=== PATIENT | female | born 1955 | race Two or more races ===

== ENCOUNTER 2024-02-15 09:30 | Outpatient (RCR) | payer MEDICARE, MEDICAID, SELFPAY ==
--- NOTE | 2024-02-13 14:48 | PT.ODAYNRPT ---
PT Outpatient Daily Note OP Daily Note Outpatient Physical Therapy Treatment Date: 02/13/24 Visit Reasons: Pain in Right shoulder Subjective: Continued pain of top of R shoulder Objective: See F/S for therex MT: STM R levator scap mm x5' Assessment: Moderate TTP of levator scap mm on R Plan: Decrease pain Length of Time (minutes) of Treatment: 30 Minutes Procedure Charges Therapeutic Exercise 30 minutes: Yes
--- NOTE | 2024-02-15 13:17 | PT.ODAYNRPT ---
PT Outpatient Daily Note OP Daily Note Outpatient Physical Therapy Treatment Date: 02/15/24 Visit Reasons: Pain in Right shoulder Subjective: Continued pain of top of R shoulder Objective: See F/S for therex MT: STM R levator scap mm x5' Assessment: Moderate TTP of levator scap mm on R Plan: Decrease pain. Pt will call after her trip to schedule Length of Time (minutes) of Treatment: 30 Minutes Procedure Charges Therapeutic Exercise 30 minutes: Yes
== END 2024-02-25 23:59 | disposition home or self-care (01) ==
LOC: CPTX 09:30
PROVIDERS: PCP Physician Assistant Medical; Referring Provider Physician Assistant Medical; Visit Provider Physician Assistant Medical
DX: M25.511 Pain in right shoulder (principal)
CPT/HCPCS: 97110

== ENCOUNTER 2024-03-15 11:00 | Outpatient (RCR) | payer OTHER, MEDICAID, SELFPAY ==
--- NOTE | 2024-03-07 09:54 | PT.ODAYNRPT ---
PT Outpatient Daily Note OP Daily Note Outpatient Physical Therapy Treatment Date: 03/07/24 Visit Reasons: Pain in RT shoulder Subjective: pt. reports 5/10 pain and concerns of popping in R shoulder when reaching overhead. Objective: see flowsheet for ther-ex AROM R shoulder ER:90 degrees Assessment: ther-ex increased AROM R shoulder from her first evaluation to today +25 degrees with less pain Plan: continue PT per POC Length of Time (minutes) of Treatment: 30 Minutes Procedure Charges Therapeutic Exercise 30 minutes: Yes
--- NOTE | 2024-03-13 19:29 | PT.ODAYNRPT ---
PT Outpatient Daily Note OP Daily Note Outpatient Physical Therapy Treatment Date: 03/13/24 Visit Reasons: Pain in RT shoulder Subjective: pt. reports 5/10 pain and concerns of popping in R shoulder when reaching overhead. Objective: see flowsheet for ther-ex AROM R shoulder ER:90 degrees Assessment: ther-ex increased AROM R shoulder from her first evaluation to today +25 degrees with less pain Plan: continue PT per POC Length of Time (minutes) of Treatment: 30 Minutes Procedure Charges Therapeutic Exercise 30 minutes: Yes
--- NOTE | 2024-03-15 16:57 | PT.ODS1RPT ---
PT OP Progress/Discharge Note Date of Service: 03/15/24 Progress Note/DC Note Progress Note/Discharge Note: Progress Note Patient Information Visit Reasons: Pain in RT shoulder Service Continue Service or Discharge: Continue Service Status Subjective: Pt. reports 5/10 pain and concerns of popping in R shoulder when reaching overhead. Objective: see flowsheet for ther-ex AROM R shoulder ER: 90 degrees FF: 120 deg Strength: 4-/5 in FF and abduction Assessment: Pt has attended 02/12 authorized visits with good progress with goals. Pt has increased AROM R shoulder from her first evaluation to today +25 degrees with less pain. She would benefit from continued therapy to improve strength. Plan: Extend POC cert dates from 03/12/24 to 05/12/24 in order to complete visits and POC to 18 visits. Procedure Charges Therapeutic Exercise 30 minutes: Yes
== END 2024-03-27 23:59 | disposition home or self-care (01) ==
LOC: CPTX 11:00
PROVIDERS: PCP Physician Assistant Medical; Referring Provider Physician Assistant Medical; Visit Provider Physician Assistant Medical
DX: M25.511 Pain in right shoulder (principal)
CPT/HCPCS: 97110

== ENCOUNTER → 2024-08-02 | Outpatient (CLI) | payer MEDICARE, MEDICAID, SELFPAY ==
--- NOTE | 2024-08-02 10:30 | XR_ITS ---
Examination: Screening digital mammography, bilateral Computer aided detection 3-D breast Tomosynthesis, bilateral Date and time of exam: August 02, 2024 1018 hours Compared to mammograms dating to April 27, 2016 Indication: Screening Technique: Nonmagnified MLO, CC views of the breasts to been obtained, reconstructed from 3-D Tomosynthesis images. R2 computer aided detection program utilized for evaluation of suspicious masses and/or abnormal calcifications. 3-D Tomosynthesis images obtained. Findings: The breasts are heterogeneously dense, which may obscure small masses 8 mm focal asymmetry outer right breast 6.9 cm from the nipple 10 mm focal asymmetry nipple level left breast CC view 5.7 cm from the nipple Impression: BI-RADS Category 0: Incomplete: Need additional imaging evaluation Recommend follow-up spot tomographic views upper outer quadrant right breast and 12:00 position left breast to assess focal asymmetries described above as well as bilateral breast sonography to complete the workup
== END | disposition home or self-care (01) ==
PROVIDERS: Referring Provider Physician Assistant Medical; Visit Provider Physician Assistant Medical
DX: Z12.31 Encounter for screening mammogram for malignant neoplasm of breast (principal); N64.89 Other specified disorders of breast
CPT/HCPCS: 77063; 77067

== ENCOUNTER → 2024-08-24 | Outpatient (CLI) | payer MEDICARE, MEDICAID, SELFPAY ==
--- NOTE | 2024-08-24 15:30 | XR_ITS ---
Examination: Carotid arterial duplex scan, ultrasound. Date and time of exam: August 24, 2024 1545 hours INDICATIONS: Right mid neck pain beginning one year ago Technique: Multiple sonographic images have been obtained of the carotid arteries and vertebral arteries, B-mode/grayscale imaging and Doppler spectral analysis and color flow Peak systolic and diastolic velocities have been recorded. Systolic diastolic ratios have been calculated. Findings: Right peak systolic velocities: Distal internal carotid artery peak systolic velocity is 1.0 M/sec Proximal internal carotid artery peak systolic velocity is 0.5 M/sec Carotid bifurcation peak systolic velocity is 0.7 M/sec External carotid artery peak systolic velocity is 0.8 M/sec Vertebral artery flow is antegrade. Left peak systolic velocities: Distal internal carotid artery peak systolic velocity is 0.7 M/sec Proximal internal carotid artery peak systolic velocity is 0.7 M/sec Carotid bifurcation peak systolic velocity is 0.7 M/sec External carotid artery peak systolic velocity is 0.9 M/sec Vertebral artery flow is antegrade Doppler waveform analysis demonstrates no spectral broadening Impression: Right internal carotid artery demonstrates 0-10% stenosis. Left internal carotid artery demonstrates 0-10% stenosis.
== END | disposition home or self-care (01) ==
LOC: CDIM 15:27
PROVIDERS: PCP Family Medicine; Referring Provider Physician Assistant Medical; Visit Provider Physician Assistant Medical
DX: R42 Dizziness and giddiness (principal)
CPT/HCPCS: 93880

== ENCOUNTER → 2024-08-24 | Outpatient (CLI) | payer MEDICARE, MEDICAID, SELFPAY ==
--- NOTE | 2024-08-29 16:00 | XR_ITS ---
Examination: CT brain head without contrast. 2-D sagittal coronal reconstructions Date and time of exam:August 29, 2024 at 1608 hours INDICATIONS: Dizziness headaches beginning 2 years ago CTDI: vol (mGy):47.4 DLP: (mGycm):930 Technique: Multiple CT axial sections of the brain have been obtained, 5 mm slice thickness. Contrast has not been administered. 2-D sagittal, coronal reconstructions have been obtained Low dose protocols were performed. One or more of the following dose reduction techniques were used; automated exposure control, adjustment of the mA and/or KV according to patient size, use of iterative reconstruction technique. Findings: No significant ventricular enlargement. Intra-axial or extra-axial hemorrhage density is not seen. No mass effect or midline shift Basal cisterns are not remarkable. Fourth ventricle is midline. Cranial vault intact. Right maxillary chronic sinus disease Impression: Negative for acute hemorrhage, mass effect or midline shift
== END | disposition home or self-care (01) ==
PROVIDERS: PCP Family Medicine; Referring Provider Physician Assistant Medical; Visit Provider Physician Assistant Medical
DX: Z53.8 Procedure and treatment not carried out for other reasons (principal)

== ENCOUNTER → 2024-08-29 | Outpatient (CLI) | payer MEDICARE, MEDICAID, SELFPAY | END | disposition home or self-care (01) | PROVIDERS: PCP Physician Assistant Medical; Referring Provider Physician Assistant Medical; Visit Provider Physician Assistant Medical | DX: R42 Dizziness and giddiness (principal) | CPT/HCPCS: 70450 ==

== ENCOUNTER → 2024-11-07 | Outpatient (CLI) | payer MEDICARE, MEDICAID, SELFPAY ==
--- NOTE | 2024-11-07 08:00 | XR_ITS ---
Examination: Breast ultrasound complete, bilateral Date and time of exam: November 07, 2024 0801 hours INDICATIONS: Mammogram August 02, 2024 8mm focal asymmetry outer right breast 6.9 cm from the nipple 10 mm focal asymmetry nipple level left breast CC view Technique: Real-time grayscale ultrasonographic imaging bilateral breasts, including all 4 quadrants as well as nipple retroareolar and axillary regions. Findings: Sonographic images right breast Benign cysts, the largest in the 11:00 position 6 x 5 mm No solid nodules Sonographic images left breast Benign cyst 2:00 solid nodule circumscribed 5 x 8 mm IMPRESSION: BI-RADS Category 3: Probably benign findings One additional 6 month left breast sonogram follow-up is needed to document stability of 2:00 nodule left breast described above
--- NOTE | 2024-11-07 09:00 | XR_ITS ---
Examination: Diagnostic digital mammography, bilateral Computer aided detection 3-D breast Tomosynthesis, bilateral Date and time of exam: November 07, 2024 0823 hours INDICATIONS: Mammogram July 2024 8mm focal asymmetry outer right breast, 10 mm focal asymmetry nipple level left breast Technique: Nonmagnified MLO, CC views of the breasts to been obtained, reconstructed from 3-D Tomosynthesis images. R2 computer aided detection program utilized for evaluation of suspicious masses and/or abnormal calcifications. 3-D Tomosynthesis images obtained. Findings: The breasts are heterogeneously dense, which may obscure small masses 4 mm nodule on the spot compression CC view slightly outer right breast anterior depth Focal asymmetry does remain nipple level left breast on the CC view Impression: BI-RADS Category 3: Probably benign findings Bilateral 6 month mammography follow-up needed to document stability of right breast nodule and focal asymmetry left breast described above.
== END | disposition home or self-care (01) ==
LOC: CDIM 07:50
PROVIDERS: Referring Provider Physician Assistant Medical; Visit Provider Physician Assistant Medical
DX: R92.333 Mammographic heterogeneous density, bilateral breasts (principal); N64.89 Other specified disorders of breast; N63.21 Unspecified lump in the left breast, upper outer quadrant
CPT/HCPCS: 76641; 77062; 77066; G0279

== ENCOUNTER 2024-11-25 11:17 | Emergency (ER) | payer MEDICARE, MEDICAID, SELFPAY ==
[2024-11-25 11:42] VITALS: BP 139/79; PULSE 72; RESP 18; TEMP 37.2; O2SAT 96
--- NOTE | 2024-11-25 11:48 | PD.EDADULT ---
ED General RME/HPI General Chief complaint: Dizziness Stated complaint: DIZZY, HEAD FEELS NUMB, FRONTAL HEADACHE Time Seen by Provider: 11/25/24 11:46 Arrival date/time: 11/25/24 11:17 CC: Light sensitivity frontal headache and dizziness when looking down HPI onset 4 to 5 days ago took a gram of Tylenol with some improvement this morning. Denies nausea vomiting has a history of diabetes hypertension hypercholesterolemia. Has had intermittent dizziness episodes since the beginning of October seen her PCP for those. Patient is awake alert oriented nontoxic-appearing but in mild discomfort Related Data Home Medications ?Medication ?Instructions ?Recorded ?Confirmed hydrochlorothiazide 25 mg tablet 25 mg PO QAM #0 tabs 06/13/14 03/07/23 atorvastatin 40 mg tablet 40 mg PO DAILY 03/07/23 03/07/23 carvedilol 25 mg tablet 25 mg PO DAILY 03/07/23 03/07/23 sitagliptin phosphate 100 mg 100 mg PO DAILY 03/07/23 03/07/23 tablet (Januvia) Previous Rx's ?Medication ?Instructions ?Recorded loratadine 10 mg disintegrating 10 mg PO QDAY #14 tabs 11/25/24 tablet meloxicam 7.5 mg tablet 7.5 mg PO QDAY PRN saldaña #10 tabs 11/25/24 Allergies Allergy/AdvReac Type Severity Reaction Status Date / Time codeine Allergy Intermediate Dizziness Verified 11/25/24 11:22 Review of Systems Review of Systems Narrative Review of Systems: GEN: No fever, no chills, no weight loss EYES: No discharge, no visual changes, no pain HEENT: No ear pain, no congestion, no sore throat PULM: No shortness of breath, no cough, no congestion CV: No chest pain, no dyspnea on exertion, no palpitations GI: No nausea, no vomiting, no diarrhea, no pain, no constipation : No frequency, no urgency, no dysuria MUSC/SKEL: No joint pain, no back pain SKIN: No rash PSYCH: No hallucinations, no depression HEME/LYMPH: No easy bleeding or bruising tendencies NEURO: No weakness, + headache Past Medical History Past Medical History NEUROLOGIC: Negative Neurological Disorders or Seizures CARDIAC: Positive Cardiac Disorders, Hypercholesterolemia and Hypertension; Negative Congestive Heart Failure RESPIRATORY: Positive Asthma; Negative Chronic Obstructive Pulmonary Disease (COPD) GASTROINTESTINAL: Positive Gastrointestinal Disorders GENITOURINARY: Negative Genitourinary Disorders or Renal Disease MUSCULOSKELETAL: Positive Musculoskeletal Disorders and Osteoporosis ENDOCRINE: Positive Endocrine Disorders and Diabetes Mellitus Type 2; Negative Diabetes Mellitus Type 1 HEMATOLOGIC: Negative Blood Disorders OTHER HISTORY: Negative Blood Transfusions or Anesthesia Reactions Surgical History SURGICAL: Positive Abdominal Surgery (UNKNOWN ESOPHAGEAL SX) and Hysterectomy Social History SMOKING STATUS: Never smoker ED Exam Narrative Physical exam: [General: Obese, in mild discomfort but not in any acute distress Head normocephalic HEENT: Eyes: Pupils are PERRLA EOMs are intact, no nystagmus. Mouth pink moist membranes uvula is midline swallow symmetrical phonation is normal. All of the subsystems of HEENT are within acceptable limits Neck is supple nontender Chest equal chest rise nontender to palpation Respiratory: Clear to auscultation no wheezes crackles or rubs CV: Rate rhythm is regular no murmurs rubs or clicks Abdomen is distended secondary to body habitus soft nontender no masses positive bowel sounds all 4 quadrants Back: No CVA tenderness no spinous process tenderness from cervical spine thoracic and lumbar spine Skin: Intact no petechiae rash induration ulceration or crepitus Extremities: Moving all extremity against resistance cap refill less than 2 seconds neurosensory intact Neuro: Awake alert oriented x3 Glascow coma 15 no focal deficits] Course Course Course Narrative: Reassessment of this patient at 1341, the pain has resolved completely all dizziness and light sensitivity is resolved as well. I asked intentionally the patient to pitch herself forward as that the time when she complains of the worst dizziness and that is all resolved as well. The patient may or may not have a sinusitis that is contributing to this although she did not have pain with pressure in the sinuses will discharge the patient home with a decongestant and meloxicam. Quality Measures none Orders Category Date Time Status Glucose [Bedside Blood Glucose] NOW Care 11/25/24 11:50 Active DiphenhydrAMINE INJ [Benadryl Inj] Med 11/25/24 11:47 Discontinued 25 mg IM X1 ONE Ketorolac Inj [Toradol Inj] Med 11/25/24 11:47 Discontinued 30 mg IM X1 ONE Prochlorperazine Inj [Compazine Inj] Med 11/25/24 11:47 Discontinued 10 mg IM X1 ONE Vital Signs Vital signs: Vital Signs Temperature 98.9 F 11/25/24 11:42 Pulse Rate 72 11/25/24 11:42 Respiratory Rate 18 11/25/24 11:42 Blood Pressure 139/79 H 11/25/24 11:42 Pulse Oximetry (%) 96 11/25/24 11:42 Oxygen Delivery Method Room Air 11/25/24 11:42 Discharge Plan Plan Patient Disposition: HOME (Self Care) Patient condition on transfer: Stable Prescriptions/Referrals Prescriptions/Med Rec: New meloxicam 7.5 mg tablet 7.5 mg PO QDAY PRN (Reason: saldaña) Qty: 10 0RF loratadine 10 mg tablet,disintegrating 10 mg PO QDAY Qty: 14 0RF No Action hydrochlorothiazide 25 MG tablet 25 mg PO QAM Qty: 0 atorvastatin 40 mg tablet 40 mg PO DAILY carvedilol 25 mg tablet 25 mg PO DAILY Januvia 100 mg tablet 100 mg PO DAILY Problem List Clinical Impression: Migraine Patient/Caregiver Discharge Instructions Education Materials: ED Headache, Migraine, Classic Additional Instructions: Take the medications as prescribed for relief if there is worsening of symptoms in spite of the medications follow-up with your primary care doctor or return the emergency room for reevaluation. Print Language: [place] Stand Alone Forms: [employer] Award Info., Patient Portal Info Letter, Work/School Release PA/ADMISSIONS RN Supervising Physician PA/ADMISSIONS RN Supervising Physician: Dheeraj Serrano ENP [facility] Clinical Information Provided by patient and family Medical Records Reviewed [facility] Meds/Rx Considered, not Ordered None Labs/Rad/Tests considered, not Ordered None Chronic Illness/Social Conditions Add or document further as needed: Diabetes hypertension hyperlipidemia EKG EKG not done Lab Interpretation Labs: none Imaging Imaging interpretation: none Medication Administration(s) none Medication Administration History Discontinued Medications Diphenhydramine HCl (Diphenhydramine Inj 50 Mg/Ml Vial) 25 mg IM X1 ONE Stop: 11/25/24 11:48 Last Admin: 11/25/24 12:12 Dose: 25 mg Documented By: ALTA Ketorolac Tromethamine (Ketorolac Inj 60 Mg/2 Ml Vial) 30 mg IM X1 ONE Stop: 11/25/24 11:48 Last Admin: 11/25/24 12:13 Dose: 30 mg Documented By: ALTA Prochlorperazine Edisylate (Prochlorperazine Inj 5 Mg/Ml Vial 2 Ml) 10 mg IM X1 ONE; Protocol Stop: 11/25/24 11:48 Last Admin: 11/25/24 12:11 Dose: 10 mg Documented By: ALTA Diagnosis Differential diagnosis: Migraine, headache, tension headache
[2024-11-25] MEDS: PROCHLORPERAZINE INJ 5 MG/ML VIAL 2 ML 10 MG IM (12:11)
[2024-11-25] MEDS: KETOROLAC INJ 60 MG/2 ML VIAL 30 MG IM (12:13)
== END 2024-11-25 14:22 | disposition home or self-care (01) ==
LOC: SERX 14:25
PROVIDERS: Emergency Provider Family Medicine; PCP Family Medicine
DX: G43.909 Migraine, unspecified, not intractable, without status migrainosus (principal)
CPT/HCPCS: 80053; 85025; 85610; 85730; 96372; 99283; J0780; J1200; J1885

== ENCOUNTER 2024-11-27 18:18 | Emergency (ER) | payer MEDICARE, MEDICAID, SELFPAY ==
[2024-11-27 19:00] VITALS: BP 147/73; PULSE 54; RESP 18; TEMP 37.1; O2SAT 95
--- NOTE | 2024-11-27 19:16 | XR_ITS ---
Examination: CT brain head without contrast. 2-D sagittal coronal reconstructions Date and time of exam: March 29, 2024 1951 hrs. Indications: Headache and redness in the eyes beginning 5 days ago CTDI: vol (mGy):47.8. DLP: (mGycm):931. Technique: Multiple CT axial sections of the brain have been obtained, 5 mm slice thickness. Contrast has not been administered. 2-D sagittal, coronal reconstructions have been obtained Low dose protocols were performed. One or more of the following dose reduction techniques were used; automated exposure control, adjustment of the mA and/or KV according to patient size, use of iterative reconstruction technique. Findings: No significant ventricular enlargement. Intra-axial or extra-axial hemorrhage density is not seen. No mass effect or midline shift Basal cisterns are not remarkable. Fourth ventricle is midline. Cranial vault intact. Impression: Negative for acute hemorrhage, mass effect or midline shift Advise clinical correlation follow-up accordingly.
--- NOTE | 2024-11-27 19:18 | EDNOTE_ITS ---
ED Headache RME/HPI General Chief Complaint: Headache Stated Complaint: HEADACHE, EYES ARE RED Time Seen by Provider: 11/27/24 19:15 Arrival date/time: 11/27/24 18:18 69F with history of HTN and DM presents to ED with 5 days of ANNE and some eye pain/redness. No blurry vision, ans also denies LOC, fall/trauma, AMS, eye discharge, URI symptoms, and fevers/chills. Symptoms started with ANNE, then eye pain. Patient was here several days ago for this where she received some meds that improved symptoms, but then they came back and the eye pain developed. Limitations: no limitations Related Data Home Medications ?Medication ?Instructions ?Recorded ?Confirmed hydrochlorothiazide 25 mg tablet 25 mg PO QAM #0 tabs 06/13/14 03/07/23 atorvastatin 40 mg tablet 40 mg PO DAILY 03/07/2302/25 carvedilol 25 mg tablet 25 mg PO DAILY 03/07/2302/25 sitagliptin phosphate 100 mg 100 mg PO DAILY 03/07/23 03/07/23 tablet (Januvia) Previous Rx's ?Medication ?Instructions ?Recorded loratadine 10 mg disintegrating 10 mg PO QDAY #14 tabs 11/25/24 tablet meloxicam 7.5 mg tablet 7.5 mg PO QDAY #10 tabs 10/28 04/21 Allergies Allergy/AdvReac Type Severity Reaction Status Date / Time codeine Allergy Intermediate Dizziness Verified 11/27/24 18:21 Review of Systems Review of Systems Systems Reviewed: All systems reviewed, normal except as documented Constitutional Constitutional: Reports system reviewed and no additional complaints, except as documented, Reports as per HPI, Denies fever(s) and Reports headache(s) Eyes Eyes: Reports as per HPI, Denies blurry vision and Reports eye pain ENT Ears, Nose, Mouth, and Throat: Denies disequilibrium and Reports headache(s) Cardiovascular Cardiovascular: Reports system reviewed and no additional complaints, except as documented, Denies chest pain and Denies dyspnea Respiratory Respiratory: Reports system reviewed and no additional complaints, except as documented, Denies cough and Denies dyspnea Gastrointestinal Gastrointestinal: Reports system reviewed and no additional complaints, except as documented, Denies abdominal pain, Denies nausea and Denies vomiting Neurologic Neurologic: Reports system reviewed and no additional complaints, except as documented, Denies confusion, Denies disequilibrium and Reports headache(s) Psychiatric Psychiatric: Denies confusion Past Medical History Past Medical History NEUROLOGIC: Negative Neurological Disorders or Seizures CARDIAC: Positive Cardiac Disorders, Hypercholesterolemia and Hypertension; Negative Congestive Heart Failure RESPIRATORY: Positive Asthma; Negative Chronic Obstructive Pulmonary Disease (COPD) GASTROINTESTINAL: Positive Gastrointestinal Disorders GENITOURINARY: Negative Genitourinary Disorders or Renal Disease MUSCULOSKELETAL: Positive Musculoskeletal Disorders and Osteoporosis ENDOCRINE: Positive Endocrine Disorders and Diabetes Mellitus Type 2; Negative Diabetes Mellitus Type 1 HEMATOLOGIC: Negative Blood Disorders OTHER HISTORY: Negative Blood Transfusions or Anesthesia Reactions Surgical History SURGICAL: Positive Abdominal Surgery (UNKNOWN ESOPHAGEAL SX) and Hysterectomy Social History SMOKING STATUS: Never smoker ED Exam General Limitations: Present no limitations General appearance: Present alert and in no apparent distress Head Head exam: Present atraumatic Eye Eye exam: Present PERRL and EOMI Expanded Eye Exam Sclera/Conjunctival: left: injection and right: hemorrhage ENT ENT exam: Present normal exam, normal oropharynx and mucous membranes moist Neck Neck exam: Present normal inspection, full ROM and trachea midline Chest Chest inspection: Present normal inspection and symmetric chest wall rise Respiratory Respiratory exam: Present normal lung sounds bilaterally Cardiovascular Cardiovascular exam: Present regular rate, normal rhythm and normal heart sounds Abdominal Exam Abdominal exam: Present soft and normal bowel sounds Extremities Exam Extremities exam: Present normal inspection and full ROM Back Exam Back exam: Present normal inspection and full ROM Neurological Exam Neurological exam: Present alert, oriented X3 and CN II-XII intact Psychiatric Psychiatric exam: Present normal affect and normal mood Skin Skin exam: Present warm, dry, intact and normal color Course Quality Measures none Orders Category Date Time Status CT head/brain wo con Stat Exams 11/27/24 19:16 Completed CBC Stat Lab 11/27/24 20:02 Completed CMP [Comprehensive Metabolic Panel] Stat Lab 11/27/24 20:02 Completed CRP [C-Reactive Protein] Stat Lab 11/27/24 20:02 Completed ESR [Sed Rate (ESR)] Stat Lab 11/27/24 20:02 Completed INR [Prothrombin Time with INR] Stat Lab 11/27/24 20:02 Completed PTT [Partial Thromboplastin Time] Stat Lab 11/27/24 20:02 Completed Metoclopramide [Reglan] Med 11/27/24 19:21 Discontinued 10 mg PO X1 ONE SUMAtriptan INJ [Imitrex Inj] Med 11/27/24 19:21 Discontinued 6 mg SC X1 ONE Vital Signs Vital signs: Vital Signs Temperature 98.7 F 11/27/24 19:00 Pulse Rate 54 L 11/27/24 19:00 Respiratory Rate 18 11/27/24 19:00 Blood Pressure 147/73 H 11/27/24 19:00 Pulse Oximetry (%) 95 11/27/24 19:00 Oxygen Delivery Method Room Air 11/27/24 19:00 O2 at 95% on RA and WNLs Headache MDM Narrative MDM Narrative:: 69F with history of HTN and DM presents to ED with 5 days of ANNE and some eye pain/redness. No blurry vision, ans also denies LOC, fall/trauma, AMS, eye discharge, URI symptoms, and fevers/chills. Symptoms started with ANNE, then eye pain. Patient was here several days ago for this where she received some meds that improved symptoms, but then they came back and the eye pain developed. Physical exam reveals normal pupil response and EOM. R eye subconjunctival hemorrhage. Speech normal. Gait normal. Patient is afebrile, calm, and alert. CT unremarkable. No leukocytosis or gross anemia. CMP unremarkable. ESR/CRP normal. Migraine cocktail improved symptoms. Counseled can return in AM for MRI if problem persists. Patient data External records reviewed:: [facility] previous records Clinical information provided by:: patient Social determinants that could affect healthcare access:: none Patient has the following chronic illnesses:: none How is presenting disease/condition affected by chronic disease/condition?: no chronic disease Evaluation data The following diagnostics were reviewed and interpreted by me:: lab results and radiology exam(s) Lab and/or radiology exams considered but not ordered:: ordered Interpretation Summary: above Medications / Prescriptions Medications or Prescriptions considered but not ordered:: ordered Medication administrations:: Medication Administration History Discontinued Medications Metoclopramide HCl (Metoclopramide 5 Mg Tablet) 10 mg PO X1 ONE Stop: 11/27/24 19:22 Last Admin: 11/27/24 20:25 Dose: 10 mg Documented By: BD Sumatriptan Succinate (Sumatriptan Inj 6 Mg/0.5 Ml Vial) 6 mg SC X1 ONE Stop: 11/27/24 19:22 Last Admin: 11/27/24 20:25 Dose: 6 mg Documented By: SALTY above Consultations Consultation(s) initiated? (list below): No Diagnosis Differential diagnosis headache: migraine, tension headache, subarachnoid hemorrhage, headache, meningitis, sinusitis and postconcussion syndrome Most likely diagnosis given after review of the tests above:: migraine, subconjunctival hemorrhage Admission Indicated Admission indicated?: not indicated Admission Request Was there a request for admission?: No Disposition Plan Disposition Plan: Discharge Discharge Attestation Discharge Attestation: The patient and all family members were given an opportunity to ask questions and understood the discharge instructions. Discharge instructions specifically effects, indications for sooner follow up or return to the emergency department, and the expected course of current diagnosis. Patient condition: Stable Discharge Plan Plan Patient Disposition: HOME (Self Care) Discharge Disposition comment: Stable Prescriptions/Referrals Prescriptions/Med Rec: No Action hydrochlorothiazide 25 MG tablet 25 mg PO QAM Qty: 0 atorvastatin 40 mg tablet 40 mg PO DAILY carvedilol 25 mg tablet 25 mg PO DAILY Januvia 100 mg tablet 100 mg PO DAILY loratadine 10 mg tablet,disintegrating 10 mg PO QDAY Qty: 14 0RF meloxicam 7.5 mg tablet 7.5 mg PO QDAY Qty: 10 0RF Referrals: Petra Jones PA-C [Primary Care Provider] - In 1 week Problem List Clinical Impression: Migraine, Subconjunctival hemorrhage Patient/Caregiver Discharge Instructions Education Materials: ED Headache, Migraine, Classic, ED Subconjunctival Hemorrhage Additional Instructions: Please follow-up with PCP within 24-48 hours and return immediately if symptoms worsen. Can return in AM for MRI. Print Language: Danish Stand Alone Forms: Patient Portal Info Letter DEYSI/KWAKU Supervising Physician JORDYN Supervising Physician: Dr. Gregory
[2024-11-27 20:15] LABS: Basophils # (Auto) 0.1 Thou/mm3 (0.0-0.2); Basophils % (Auto) 1 % (0-2.5); Eosinophils # (Auto) 0.2 Thou/mm3 (0.0-0.5); Eosinophils % (Auto) 2 % (0-10); Hematocrit 35.6 % (36.0-46.0); Hemoglobin 11.7 g/dL (12.0-16.0); Immature Granulocytes Auto 0.01 Thou/mm3 (0.00-0.00); Lymphocytes # (Auto) 4.2 Thou/mm3 (1.0-4.8); Lymphocytes % (Auto) 39 % (10-50); Mean Corpuscular HGB Conc 32.9 g/dl (31.0-37.0); Mean Corpuscular Hemoglobin 30.4 pg (25.0-35.0); Mean Corpuscular Volume 93 fL (80-100); Monocytes # (Auto) 0.9 Thou/mm3 (0.0-0.8); Monocytes % (Auto) 8 % (0-12); Neutrophils # (Auto) 5.4 Thou/mm3 (1.8-7.7); Neutrophils % (Auto) 50 % (37-80); Nucleated Red Blood Cell # 0.00 Thou/mm3 (0.00-0.00); Nucleated Red Blood Cell % 0 /100 WBC (0); Platelet Count 240 Thou/mm3 (140-440); RDW Standard Deviation 45.2 fL (36.4-46.3); Red Blood Count 3.85 Miln/mm3 (4.00-5.20); White Blood Count 10.8 Thou/mm3 (3.6-11.0)
[2024-11-27] MEDS: SUMAtriptan INJ 6 MG/0.5 ML VIAL SC (20:25)
[2024-11-27] MEDS: METOCLOPRAMIDE 5 MG TABLET 10 MG PO (20:25)
[2024-11-27 20:33] LABS: INR 0.9 (0.9-1.3); Partial Thromboplastin Time 25.4 Seconds (22.0-36.0); Prothrombin Time 10.4 Seconds (9.0-12.2)
[2024-11-27 20:53] LABS: Alanine Aminotransferase 19 U/L (10-49); Albumin, Serum 4.3 gm/dL (3.4-4.8); Albumin/Globulin Ratio 2.0 (1.2-2.2); Alkaline Phosphatase 103 U/L (46-116); Anion Gap 10 (7-16); Aspartate Amino Transferase 19 U/L (0-34); BUN/Creatinine Ratio 19 Ratio (12-20); Bilirubin,Total 0.2 mg/dL (0.3-1.2); Blood Urea Nitrogen 17 mg/dL (9-23); C-Reactive Protein < 0.5 mg/dL (0.0-0.9); Calcium 10.1 mg/dL (8.3-10.6); Calcium (Corrected) 10.1 mg/dL (8.5-10.1); Carbon Dioxide 26.0 mMol/L (20.0-31.0); Chloride 105 mMol/L (98-107); Creatinine (Component) 0.9 mg/dL (0.6-1.3); Estimated Creatinine Clearance 56.2 mL/min (>60); Globulin 2.2 gm/dL (2.3-3.5); Glucose 146 mg/dL (74-106); Osmolality,Calculated 285 (275-295); Potassium 3.6 mMol/L (3.4-5.1); Sodium 141 mMol/L (136-145); Total Protein 6.5 gm/dL (5.7-8.2); eGFR > 60 See Note
[2024-11-27 21:20] LABS: Sed Rate (ESR) 11 mm/hr (0-30)
[2024-11-27 21:32] VITALS: BP 144/77; PULSE 54; RESP 19; TEMP 36.9; O2SAT 97
== END 2024-11-27 23:23 | disposition home or self-care (01) ==
PROVIDERS: Physician Assistant; Emergency Provider Emergency Medicine; PCP Physician Assistant Medical
DX: H11.31 Conjunctival hemorrhage, right eye (principal); G43.909 Migraine, unspecified, not intractable, without status migrainosus
CPT/HCPCS: 36415; 70450; 80053; 85025; 85610; 85652; 85730; 86140; 96372; 99284; J3030; A9270

== ENCOUNTER 2024-11-28 09:26 | Emergency (ER) | payer MEDICARE, MEDICAID, SELFPAY ==
--- NOTE | 2024-11-28 | XR_ITS ---
Examinations: MRI Brain without intravenous contrast. MRA brain without intravenous contrast. MRA carotids without intravenous contrast 3-D vascular reconstructions Date and time of exam: November 28, 2024, 1248 hours INDICATIONS: Headaches beginning one month ago Technique: Multiple axial and sagittal images of the brain have been obtained MRA brain carotid images without contrast obtained, including 3-D postprocessing, vascular maximum intensity projection images Findings: Sellaturcica is not enlarged. The optic chiasm and infundibular stalk are not remarkable. Prepontine and interpeduncular cisterns are not enlarged. No localized enlargement of the medulla or asiya. Fourth ventricle and cerebellar tonsils normal in position. Subacute hemorrhage is not seen. Fourth ventricle is midline. Mass in the cerebellopontine angle region is not evident. 7th and 8th nerve complexes exhibits symmetry. Globes are symmetrical with no retro-orbital mass. Increased white matter signal mild Diffusion-weighted images demonstrate no focus of restricted diffusion Mass-effect upon the ventricular system is not identified. MRA carotid images degraded by patient motion. MRA brain images no large vessel occlusions Impression: Negative for acute hemorrhage mass effect or midline shift No acute infarct Mild chronic microvascular white matter change No cerebral large vessel arterial occlusions
[2024-11-28 09:59] VITALS: BP 138/68; PULSE 55; RESP 16; TEMP 37.1; O2SAT 96; BMI 33.7
--- NOTE | 2024-11-28 10:06 | PD.EDRME ---
Rapid Medical Screening Exam RME Arrival date/time: 11/28/24 09:26 69-year-old female presents to the emergency department for complaint of headache x 1 month patient was evaluated yesterday told return today for MRI Chief Complaint: Headache Vital signs: Vital Signs Temperature 98.8 F 11/28/24 09:59 Pulse Rate 55 L 11/28/24 09:59 Respiratory Rate 16 11/28/24 09:59 Blood Pressure 138/68 H 11/28/24 09:59 Pulse Oximetry (%) 96 11/28/24 09:59 Oxygen Delivery Method Room Air 11/28/24 09:59
--- NOTE | 2024-11-28 14:07 | EDNOTE_ITS ---
<Statement entered by Vanesa Valenzuela MD - 12/08/24 11:10> As co-signing physician, I was present and available for consult prn. I concur with the plan and care as documented by the midlevel provider. ED Headache RME/HPI General Chief Complaint: Headache Stated Complaint: MRI FOR ANNE Time Seen by Provider: 11/28/24 14:03 Arrival date/time: 11/28/24 09:26 69-year-old female presents to the emergency department for complaint of headache x 1 month patient was evaluated yesterday told return today for MRI patient does share that she has had headaches intermittently for the last couple of years. Patient reports no saddle anesthesia no loss of bowel or bladder patient walks with steady gait has no abnormal neurological findings Limitations: no limitations RME / HPI RME / HPI Narrative: 11/28/24 09:26 69-year-old female presents to the emergency department for complaint of headache x 1 month patient was evaluated yesterday told return today for MRI Related Data Home Medications ?Medication ?Instructions ?Recorded ?Confirmed hydrochlorothiazide 25 mg tablet 25 mg PO QAM #0 tabs 06/13/14 03/07/23 atorvastatin 40 mg tablet 40 mg PO DAILY 03/07/2302/25 carvedilol 25 mg tablet 25 mg PO DAILY 03/07/2302/25 sitagliptin phosphate 100 mg 100 mg PO DAILY 03/07/23 03/07/23 tablet (Januvia) Previous Rx's ?Medication ?Instructions ?Recorded loratadine 10 mg disintegrating 10 mg PO QDAY #14 tabs 11/25/24 tablet meloxicam 7.5 mg tablet 7.5 mg PO QDAY #10 tabs 10/28 04/21 acetaminophen-caffeine 500 mg-65 1 tab PO Q6H PRN pain #30 tabs 11/28/24 mg tablet (Excedrin Tension Headache) ibuprofen 800 mg tablet 800 mg PO TID PRN pain #30 t abs 11/28/24 Allergies Allergy/AdvReac Type Severity Reaction Status Date / Time codeine Allergy Intermediate Dizziness Verified 11/28/24 09:29 Review of Systems Review of Systems Systems Reviewed: All systems reviewed, normal except as documented Constitutional Constitutional: Reports system reviewed and no additional complaints, except as documented, Denies fever(s) and Reports headache(s) Eyes Eyes: Reports system reviewed and no additional complaints, except as documented and Denies blurry vision ENT Ears, Nose, Mouth, and Throat: Reports system reviewed and no additional complaints, except as documented, Reports headache(s), Denies nasal congestion and Denies nasal discharge Cardiovascular Cardiovascular: Reports system reviewed and no additional complaints, except as documented, Denies chest pain and Denies dyspnea Respiratory Respiratory: Reports system reviewed and no additional complaints, except as documented, Denies chest congestion, Denies cough and Denies dyspnea Gastrointestinal Gastrointestinal: Reports system reviewed and no additional complaints, except as documented and Denies abdominal pain Integumentary/Breasts Skin/Breast: Reports system reviewed and no additional complaints, except as documented and Denies rash Neurologic Neurologic: Reports system reviewed and no additional complaints, except as documented, Reports as per HPI and Reports headache(s) Past Medical History Past Medical History NEUROLOGIC: Negative Neurological Disorders or Seizures CARDIAC: Positive Cardiac Disorders, Hypercholesterolemia and Hypertension; Negative Congestive Heart Failure RESPIRATORY: Positive Asthma; Negative Respiratory Disorders or Chronic Obstructive Pulmonary Disease (COPD) GASTROINTESTINAL: Positive Gastrointestinal Disorders GENITOURINARY: Negative Genitourinary Disorders or Renal Disease MUSCULOSKELETAL: Positive Musculoskeletal Disorders and Osteoporosis ENDOCRINE: Positive Endocrine Disorders and Diabetes Mellitus Type 2; Negative Diabetes Mellitus Type 1 HEMATOLOGIC: Negative Blood Disorders OTHER HISTORY: Negative Blood Transfusions or Anesthesia Reactions Surgical History SURGICAL: Positive Abdominal Surgery (UNKNOWN ESOPHAGEAL SX) and Hysterectomy Social History SMOKING STATUS: Never smoker ED Exam General Limitations: Present no limitations General appearance: Present alert and in no apparent distress Head Head exam: Present atraumatic, normocephalic and normal inspection Eye Eye exam: Present normal appearance, PERRL and EOMI; Absent conjunctival injection, nystagmus, miosis or mydriasis ENT ENT exam: Present normal exam, normal oropharynx and mucous membranes moist Neck Neck exam: Present normal inspection, full ROM and trachea midline Chest Chest inspection: Present normal inspection and symmetric chest wall rise Respiratory Respiratory exam: Present normal lung sounds bilaterally; Absent respiratory distress Cardiovascular Cardiovascular exam: Present regular rate, normal rhythm and normal heart sounds Abdominal Exam Abdominal exam: Present soft and normal bowel sounds Extremities Exam Extremities exam: Present normal inspection and full ROM Back Exam Back exam: Present normal inspection and full ROM Neurological Exam Neurological exam: Present alert, oriented X3, CN II-XII intact, normal gait and reflexes normal; Absent motor sensory deficit Psychiatric Psychiatric exam: Present normal affect and normal mood Skin Skin exam: Present warm, dry, intact and normal color; Absent rash Course Quality Measures none Orders Category Date Time Status MRI Screening NOW Care 11/28/24 10:03 Active MRI Screening NOW Care 11/28/24 10:06 Active MR brain wo MRA brn wo wen wo Stat Exams 11/28/24 Completed Vital Signs Vital signs: Vital Signs Temperature 98.8 F 11/28/24 09:59 Pulse Rate 55 L 11/28/24 09:59 Respiratory Rate 16 11/28/24 09:59 Blood Pressure 138/68 H 11/28/24 09:59 Pulse Oximetry (%) 96 11/28/24 09:59 Oxygen Delivery Method Room Air 11/28/24 09:59 O2 saturation 96% on room air within normal limits Headache MDM Narrative MDM Narrative:: 69-year-old female presents to the emergency department for complaint of headache x 1 month patient was evaluated yesterday told return today for MRI patient does share that she has had headaches intermittently for the last couple of years. Patient reports no saddle esthesia no loss of bowel or bladder patient walks with steady gait has no abnormal neurological findings On exam patient well-appearing patient does not appear ill or toxic no acute distress As provider who saw her yesterday told her to come back for an MRI MRI ordered MRI MRI ordered no acute emergent findings noted Patient struck to follow-up with PCP in order to get a referral to specialist for her chronic headaches and for worsening symptoms return immediately Patient data External records reviewed:: [facility] previous records Clinical information provided by:: patient Social determinants that could affect healthcare access:: none Patient has the following chronic illnesses:: See history How is presenting disease/condition affected by chronic disease/condition?: exacerbated by Evaluation data The following diagnostics were reviewed and interpreted by me:: radiology exam(s) Lab and/or radiology exams considered but not ordered:: Radiology obtained Interpretation Summary: Reviewed by me Medications / Prescriptions Medications or Prescriptions considered but not ordered:: Given no med Medication administrations:: No meds Consultations Consultation(s) initiated? (list below): No Diagnosis Differential diagnosis headache: migraine, tension headache and subarachnoid hemorrhage Most likely diagnosis given after review of the tests above:: Headache Admission Indicated Admission indicated?: not indicated Admission Request Was there a request for admission?: No Disposition Plan Disposition Plan: Discharge Discharge Attestation Discharge Attestation: The patient and all family members were given an opportunity to ask questions and understood the discharge instructions. Discharge instructions specifically effects, indications for sooner follow up or return to the emergency department, and the expected course of current diagnosis. Patient condition: Stable Discharge Plan Plan Patient Disposition: HOME (Self Care) Discharge Disposition comment: Stable Prescriptions/Referrals Prescriptions/Med Rec: New Excedrin Tension Headache 500-65 mg tablet 1 tab PO Q6H PRN (Reason: pain) Qty: 30 0RF ibuprofen 800 mg tablet 800 mg PO TID PRN (Reason: pain) Qty: 30 0RF No Action hydrochlorothiazide 25 MG tablet 25 mg PO QAM Qty: 0 atorvastatin 40 mg tablet 40 mg PO DAILY carvedilol 25 mg tablet 25 mg PO DAILY Januvia 100 mg tablet 100 mg PO DAILY loratadine 10 mg tablet,disintegrating 10 mg PO QDAY Qty: 14 0RF meloxicam 7.5 mg tablet 7.5 mg PO QDAY Qty: 10 0RF Referrals: No Primary/Family,Physician [Primary Care Provider] - 11/29/24 Problem List Clinical Impression: Headache Patient/Caregiver Discharge Instructions Education Materials: Self-Care for Headaches Additional Instructions: Please follow up with your primary care doctor in the next 24-48hrs for any worsening symptoms return here immediately As you have a history of chronic headaches it is important you follow-up with your PCP in order get a referral to a neurologist Print Language: Eritrean Stand Alone Forms: Cecelia Award Info., Patient Portal Info Letter PA/KWAKU Supervising Physician DEYSI/KWAKU Supervising Physician: dr valenzuela
== END 2024-11-28 14:56 | disposition home or self-care (01) ==
PROVIDERS: Emergency Provider Emergency Medicine
DX: R51.9 Headache, unspecified (principal)
CPT/HCPCS: 70544; 99284